=== PATIENT | female | born 1960 | race Caucasian/White ===

== ENCOUNTER → 2023-09-08 09:36 | Outpatient (REF) | payer OTHER, SELFPAY | LOC: WDC 09:36 | PROVIDERS: ATTENDING PHYSICIAN Nurse Practitioner Adult Health; FAMILY PHYSICIAN Physician Assistant Medical | DX: N63.20 Unspecified lump in the left breast, unspecified quadrant (principal); N63.21 Unspecified lump in the left breast, upper outer quadrant | CPT/HCPCS: 76642; 77062; 77066 ==

== ENCOUNTER → 2023-09-15 09:00 | Outpatient (REF) | payer OTHER, SELFPAY ==
--- NOTE | 2023-09-18 09:00 | OID.BR.INTR ---
OID Breast Navigator - Initial
- -
Did not meet patient at time of biopsy. Will follow up per protocol.
== END ==
LOC: WDC 09:00
PROVIDERS: ATTENDING PHYSICIAN Nurse Practitioner Adult Health; FAMILY PHYSICIAN Physician Assistant Medical
DX: N63.21 Unspecified lump in the left breast, upper outer quadrant (principal)
CPT/HCPCS: 88305; 19083

== ENCOUNTER → 2024-10-03 17:45 | Outpatient (REF) | payer BC, SELFPAY | LOC: WDC 17:45 | PROVIDERS: ATTENDING PHYSICIAN Obstetrics & Gynecology Gynecology; FAMILY PHYSICIAN Physician Assistant Medical | DX: Z12.39 Encounter for other screening for malignant neoplasm of breast (principal); Z12.31 Encounter for screening mammogram for malignant neoplasm of breast | CPT/HCPCS: 77063; 77067 ==